=== PATIENT | female | born 1995 | race Caucasian/White ===

== ENCOUNTER 2018-10-24 18:51 | Emergency (ER) | payer SELFPAY ==
[2018-10-24 19:39] LABS: HCG UR QUAL NEGATIVE
[2018-10-24] MEDS ORDERED: HALOPERIDOL 5 MG/ML VIAL IVP ONE (20:09)
[2018-10-24] MEDS ORDERED: LORazepam 2 MG/ML VIAL IVP STA (20:10)
[2018-10-24 20:27] LABS: BILIRUBIN,URINE NEGATIVE (NEGATIVE); CLARITY,URINE CLEAR (CLEAR); GLUCOSE, URINE (UA) NEGATIVE (NEGATIVE); KETONES,URINE (UA) TRACE mg/dL (NEGATIVE); LEUKOCYTE ESTERASE, URINE NEGATIVE (NEGATIVE); NITRITE,URINE NEGATIVE (NEGATIVE); OCCULT BLOOD,URINE NEGATIVE (NEGATIVE); PROTEIN,URINE NEGATIVE (NEGATIVE); UROBILINOGEN,URINE 0.2 (NORMAL) E.U./dL (NORMAL)
[2018-10-24 20:42] LABS: BASOPHILS # (AUTO) 0.1 10^3/uL (0.0-0.1); BASOPHILS % (AUTO) 0.8 %; EOSINOPHILS # (AUTO) 0.1 10^3/uL (0.0-0.7); EOSINOPHILS % (AUTO) 1.3 %; HGB - HEMOGLOBIN 14.1 g/dL (12.0-16.0); LYMPHOCYTES # (AUTO) 3.2 10^3/uL (1.5-3.5); LYMPHOCYTES % (AUTO) 34.1 %; MEAN CORPUSCULAR HEMOGLOBIN 29.5 pg (27.0-31.0); MEAN CORPUSCULAR HGB CONC 34.3 g/dL (32.0-36.0); MEAN PLATELET VOLUME 7.7 fL (7.9-10.8); MONOCYTES # (AUTO) 0.5 10^3/uL (0.0-1.0); NEUTROPHILS # (AUTO) 5.6 10^3/uL (1.5-6.6); NEUTROPHILS % (AUTO) 58.8 %; PLT - PLATELET COUNT 292 10^3/uL (130-450); RED BLOOD COUNT 4.77 10^6/uL (4.20-5.40); RED CELL DISTRIBUTION WIDTH 12.6 % (12.0-15.0); WHITE BLOOD COUNT 9.5 x10^3/uL (4.8-10.8)
[2018-10-24 20:48] LABS: CALCIUM 9.3 mg/dL (8.5-10.3); CREATININE 0.7 mg/dL (0.4-1.0)
[2018-10-24 21:17] VITALS: BP 112/53
--- NOTE | 2018-10-24 21:40 | ED Physician Documentation ---
History of Present Illness - Stated complaint Stated Complaint: RT SIDE PX 10 DAYS - Chief complaint Chief Complaint: Abd Pain - History obtained from History obtained from: Patient - History of Present Illness Timing: How many days ago (8) Pain level max: 7 Pain level now: 3 Severity Comments: mild Quality: sharp Radiates to: none Improved by: nothing Worsened by: nothing Associated symptoms: Generalized muscle spasms Review of Systems Ten Systems: 10 systems reviewed and negative Constitutional: reports: Reviewed and negative Eyes: reports: Reviewed and negative Ears: reports: Reviewed and negative Nose: reports: Reviewed and negative Throat: reports: Reviewed and negative Cardiac: reports: Reviewed and negative Respiratory: reports: Reviewed and negative GI: reports: Reviewed and negative : reports: Reviewed and negative Skin: reports: Reviewed and negative Musculoskeletal: reports: Reviewed and negative Neurologic: reports: Reviewed and negative Psychiatric: reports: Reviewed and negative Endocrine: reports: Reviewed and negative Immunocompromised: reports: Reviewed and negative PD PAST MEDICAL HISTORY - Past Medical History Past Medical History: No Cardiovascular: None Respiratory: None Neuro: None Endocrine/Autoimmune: None GI: None [employer]: None : None HEENT: None Psych: Depression, Anxiety Musculoskeletal: None Derm: None - Past Surgical History Past Surgical History: No Other past surgical history: Reviewed and not pertinent - Present Medications Home Medications: Ambulatory Orders Medication Instructions Recorded Confirmed Sertraline [Zoloft] 25 mg PO DAILY 10/24/18 10/24/18 - Allergies Allergies/Adverse Reactions: Allergies Allergy/AdvReac Type Severity Reaction Status Date / Time No Known Drug Allergies Allergy Verified 10/24/18 18:58 - Social History Does the pt smoke?: No Smoking Status: Never smoker Does the pt drink ETOH?: Yes Does the pt have substance abuse?: No - Family History Family history: reports: Other (Reviewed and not pertinent) - Immunizations Immunizations are current?: Yes - POLST Patient has POLST: No PD ED PE NORMAL - Vitals Vital signs reviewed: Yes - General General: Alert and oriented X 3, No acute distress - HEENT HEENT: PERRL - Neck Neck: Supple, no meningeal sign - Cardiac Cardiac: RRR, No murmur - Respiratory Respiratory: Clear bilaterally - Abdomen Abdomen: Normal bowel sounds, Soft, Non tender, Non distended - Derm Derm: Warm and dry - Extremities Extremities: No deformity - Neuro Neuro: Alert and oriented X 3 - Psych Psych: Normal mood, Normal affect, Other (Patient with occasional twitching that is distractible) Results - Vitals Vitals: Vital Signs - 24 hr 10/24/18 10/24/18 18:56 21:16 Temperature 36.8 C 37.0 C Heart Rate 80 86 Respiratory 15 14 Rate Blood Pressure 131/91 H 112/53 L O2 Saturation 99 98 Oxygen O2 Source Room air - Labs Labs: Laboratory Tests 10/24/18 10/24/18 10/24/18 19:05 20:30 20:30 WBC 9.5 RBC 4.77 Hgb 14.1 Hct 41.0 MCV 86.0 MCH 29.5 MCHC 34.3 RDW 12.6 Plt Count 292 MPV 7.7 L Neut # (Auto) 5.6 Lymph # (Auto) 3.2 [place] # (Auto) 0.5 Eos # (Auto) 0.1 Baso # (Auto) 0.1 Absolute Nucleated RBC 0.01 Nucleated RBC % 0.1 Sodium 136 Potassium 3.5 Chloride 104 Carbon Dioxide 25 Anion Gap 7.0 BUN 16 Creatinine 0.7 Estimated GFR (MDRD) 105 Glucose 91 Calcium 9.3 Urine Color Urine Clarity Urine pH Ur Specific [place] >=1.030 H Urine Protein Urine Glucose (UA) Urine Ketones Urine Occult Blood Urine Nitrite Urine Bilirubin Urine Urobilinogen Ur Leukocyte Esterase Ur Microscopic Review Urine Culture Comments Urine HCG, Qual NEGATIVE 10/24/18 Unknown WBC RBC Hgb Hct MCV MCH MCHC RDW Plt Count MPV Neut # (Auto) Lymph # (Auto) [place] # (Auto) Eos # (Auto) Baso # (Auto) Absolute Nucleated RBC Nucleated RBC % Sodium Potassium Chloride Carbon Dioxide Anion Gap BUN Creatinine Estimated GFR (MDRD) Glucose Calcium Urine Color YELLOW Urine Clarity CLEAR Urine pH 6.0 Ur Specific [place] >=1.030 H Urine Protein NEGATIVE Urine Glucose (UA) NEGATIVE Urine Ketones TRACE Urine Occult Blood NEGATIVE Urine Nitrite NEGATIVE Urine Bilirubin NEGATIVE Urine Urobilinogen 0.2 (NORMAL) Ur Leukocyte Esterase NEGATIVE Ur Microscopic Review NOT INDICATED Urine Culture Comments NOT INDICATED Urine HCG, Qual PD MEDICAL DECISION MAKING - ED course Complexity details: reviewed results, re-evaluated patient, considered differential, d/w patient, d/w family ED course: 23-year-old female presents with 1 week of abdominal pain and muscle spasms. Benign abdominal exam. Labs unremarkable. Symptoms improved with Haldol and Ativan. Patient discharged with primary care follow-up. Departure - Departure Disposition: 01 Home, Self Care Clinical Impression: Muscle spasm Abdominal pain Qualifiers: Abdominal location: generalized Qualified Code(s): R10.84 - Generalized abdominal pain Condition: Good Instructions: Abdominal Pain, Muscle Spasm Follow-Up: Your, pcp [Other] Comments: Follow-up with PCP within 24 hours. Return with worsening symptoms. Discharge Date/Time: 10/24/18 21:48
== END 2018-10-24 21:48 | disposition home or self-care (01) ==
LOC: ED 18:51
DX: M62.838 Other muscle spasm (principal); R10.84 Generalized abdominal pain
CPT/HCPCS: 36415; 80048; 81003; 81025; 85025; 96374; 96375; 99282; 99283; J2060; 81001; 87086

== ENCOUNTER 2019-12-06 21:30 | Outpatient (CLI) | payer OTHER ==
--- NOTE | 2019-12-06 23:58 | Ultrasound Report ---
Reason: ABNORMAL UTERINE AND VAGINAL BLEEDING Procedure Date: 12/06/2019 Accession Number: [id number] / [id number] Procedure: US - Pelvic w/Transvaginal CPT Code: Final Report FULL RESULT: EXAM: PELVIC ULTRASOUND. EXAM DATE: 12/06/2019 11:17 PM. CLINICAL HISTORY: Abnormal uterine and vaginal bleeding. COMPARISON: None. TECHNIQUE: Realtime transabdominal pelvic scan performed to identify the uterus and adnexa and as an overview of other pelvic structures, followed by transvaginal scan to provide greater detail of the uterus and adnexa, with static image documentation. FINDINGS: Uterus: 6.9 x 3.7 x 3 cm, volume 40 cc. Anteverted position. Normal overall size and echotexture. Masses: None. Endometrium: 8.1 mm. Normal. Cervix: Subcentimeter nabothian cysts. Nonspecific echogenic area in the cervical region measuring 0.8 x 0.5 cm. Right Ovary: 3.1 x 2.2 x 2.2 cm, volume 7.8 cc. Normal echotexture and blood flow. Left Ovary: 2.7 x 2.6 x 1.9 cm, volume 7 cc. Normal echotexture and blood flow. Free Fluid: None. Other: None. IMPRESSION: 1. No acute findings sonographically. 2. Nonspecific echogenic area in the cervical region measuring 0.8 x 0.5 cm. A cervical polyp cannot be completely ruled out. Recommend gynecological consultation for further evaluation, not necessarily on an emergent basis. [facility]
== END 2019-12-06 23:59 | disposition home or self-care (01) ==
LOC: DI 21:30
PROVIDERS: ATTEND Obstetrics & Gynecology
DX: N93.8 Other specified abnormal uterine and vaginal bleeding (principal); N88.8 Other specified noninflammatory disorders of cervix uteri
CPT/HCPCS: 76830; 76856